=== PATIENT | male | born 1950 | race Caucasian/White ===

== ENCOUNTER 2019-07-23 18:08 | Inpatient (IN) | payer MEDICARE ==
[2019-07-23] VITALS (92 sets, daily range): BP systolic 126; BP diastolic 92; PULSE 99; TEMP 97.7; O2SAT 94–100
[~2019-07-23] VITALS: Ht 172.7 cm; Wt 80.3 kg
[2019-07-23 18:31] LABS: COLLECTION METHOD CLEAN CATCH
[2019-07-23 18:37] LABS: PH 6 (5-8); SQUAMOUS EPITHELIAL 0-2 /hpf; URINE APPEARANCE Clear; URINE BACTERIA None Seen /hpf; URINE BILIRUBIN Negative (NEGATIVE); URINE BLOOD 1+ (NEGATIVE); URINE COLOR Colorless; URINE GLUCOSE Negative (NEGATIVE); URINE KETONE Negative (NEGATIVE); URINE LEUKOCYTE ESTERASE Negative (NEGATIVE); URINE NITRATE Negative (NEGATIVE); URINE PROTEIN(semi-quant) Negative (NEGATIVE); URINE RBC 0-2 /hpf; URINE UROBILINOGEN Negative (NEGATIVE)
[2019-07-23 18:41] LABS: BASO % 0.6 % (0.0-2.0); EOS # 0.1 (0.0-0.7); EOS % 0.9 % (0-4.0); GRAN # 3.8 (1.4-6.5); GRAN % 58.5 % (42.2-75.2); HEMATOCRIT 44.4 % (42.0-52.0); HEMOGLOBIN 15.2 g/dl (13.5-18.0); LYMPH # 2.1 (1.2-3.4); LYMPH % 31.3 % (20.0-51.0); MEAN CELL VOLUME 87 fl (80.0-100.0); MEAN CORPUSCULAR HEMOGLOBIN 30 pg (27.0-31.0); MEAN CORPUSCULAR HGB CONC 34 g/dl (33.0-37.0); MEAN PLATELET VOLUME 9.2 fl (7.4-10.4); MONO # 0.6 (0.1-0.6); MONO % 8.5 % (1.7-9.3); PLATELET COUNT 220 K/mm3 (130-400); REDCELL DISTRIBUTION WIDTH-CV 13.2 % (11.5-14.5)
[2019-07-23 18:50] LABS: INR 1.1 (0.8-3.0); PROTHROMBIN TIME 11.8 SECONDS (9.7-12.8)
[2019-07-23 18:53] LABS: ALANINE AMINOTRANSFERASE 22 U/L (4-49); ALBUMIN 4.5 gm/dL (3.5-5.0); ALKALINE PHOSPHATASE 115 U/L (50-136); ANION GAP 7 mmol/L (7-16); AST,SGOT 27 U/L (15-37); BILIRUBIN,TOTAL 0.4 mg/dL (0.0-1.0); BLOOD UREA NITROGEN 18 mg/dL (9-20); CALCIUM 9.1 mg/dL (8.4-10.2); CARBON DIOXIDE 26 mmol/L (22-30); CHLORIDE 106 mmol/L (98-107); CREATINE KINASE 82 U/L (55-170); CREATININE, serum 0.88 (0.66-1.25); GLUCOSE 108 mg/dL (74-106); POTASSIUM 4.3 mmol/L (3.4-5.0); SODIUM 140 mmol/L (137-145); TOTAL PROTEIN 8.2 gm/dL (6.4-8.2)
[2019-07-23 19:06] LABS: TROPONIN-I < 0.012 ng/mL (0.000-0.035)
--- NOTE | 2019-07-23 20:13 | NUR ---
Received report from LESLIE Rogers.
--- NOTE | 2019-07-23 20:46 | NUR ---
Patient arrives to [facility] room 18 via ED stretcher. Cardizem is infusing to the RAC at 15 mg/hr. Patient is able to ambulate to [facility] bed with standby assistance. He denies any pain or discomfort; initial HR is 99, increasing to the 130s with ambulation. Other vitals within normal limits. He has with him his wallet, including $10 abreu; a wedding band, and his street clothes. No skin issues noted. Dr. Lobato notified of patient's arrival. Received orders for a general diet and to continue cardizem drip throughout the night, titrating as needed. Patient's family has been updated. Will continue to monitor.
[2019-07-23 21:46] LABS: MAGNESIUM 1.9 mg/dL (1.6-2.3)
[2019-07-23 22:08] LABS: TROPONIN-I 3 HR POST INITIAL < 0.012 ng/mL (0.000-0.034)
[2019-07-24] VITALS (503 sets, daily range): BP systolic 101–122; BP diastolic 63–81; PULSE 50–75; TEMP 97.6–98; O2SAT 91–100
[2019-07-24 05:08] LABS: BASO # 0.1 (0.0-0.2); BASO % 0.8 % (0.0-2.0); EOS # 0.1 (0.0-0.7); EOS % 1.5 % (0-4.0); GRAN # 2.9 (1.4-6.5); GRAN % 48.1 % (42.2-75.2); HEMATOCRIT 41.3 % (42.0-52.0); HEMOGLOBIN 13.9 g/dl (13.5-18.0); LYMPH # 2.3 (1.2-3.4); LYMPH % 37.8 % (20.0-51.0); MEAN CELL VOLUME 87 fl (80.0-100.0); MEAN CORPUSCULAR HEMOGLOBIN 29 pg (27.0-31.0); MEAN CORPUSCULAR HGB CONC 34 g/dl (33.0-37.0); MEAN PLATELET VOLUME 9.3 fl (7.4-10.4); MONO # 0.7 (0.1-0.6); MONO % 11.6 % (1.7-9.3); PLATELET COUNT 211 K/mm3 (130-400); RED BLOOD COUNT 4.77 M/mm3 (4.20-5.60); REDCELL DISTRIBUTION WIDTH-CV 13.2 % (11.5-14.5)
[2019-07-24 05:17] LABS: CALCIUM 8.6 mg/dL (8.4-10.2); CREATININE, serum 0.84 (0.66-1.25); PHOSPHOROUS 3.9 mg/dL (2.5-4.5); POTASSIUM 3.6 mmol/L (3.4-5.0)
--- NOTE | 2019-07-24 10:58 | NUR ---
Bedside shift report received from LESLIE Pryor. Patient awake, resting, with no complaints or concerns. Vital sign stable. Full assessment completed. Bed in lowest position, side rails up x2, call light and personal items within reach.
--- NOTE | 2019-07-24 11:04 | NUR ---
SW met with the patient to discuss discharge plan. The patient lives in [place] with his , Erinn (ph#[phone]). He reports independence with ADLs and does not have any DME. The patient does not have a PCP. He states that he would be interested in getting set up with a PCP in [place]. FIOR provided the patient with a list of the different providers in [place]. The patient states that he has some friends that are nurses and would like to talk to them first and get their preferences on a PCP. He receives his medications at [facility]. He reports that he has not had difficulties affording his meds yet, but is unsure if he will have problems affording any new meds he is prescribed. He states that he does not have prescription coverage. The patient plans to return home with his upon discharge. The patient is to have a heart cath tomorrow. SW to continue to follow for PCP preference and pricing meds.
--- NOTE | 2019-07-24 11:50 | NUR ---
Cardizem gtt d/c'd per physician orders since PO cardizem given approximately 1 hour ago.
--- NOTE | 2019-07-24 12:04 | NUR ---
Patient presses call light and states that his heart feels like it is in a normal rhythm. Telemetry assessed and obvious p-waves noted with a regular rhythm. EKG ordered and patient is indeed in sinus rhythm. Hospitalist and cardiology made aware at this time.
--- NOTE | 2019-07-24 16:18 | NUR ---
Approximately 1500 patient has an episode of symptomatic bradycardia. Patient states he felt "queasy and weak" and felt "sweaty" and looked at the monitor and noticed that his heart rate was in the 40's. Soon after, he felt much better and his heart rate came back up into the 50's. Dr. Cerna notified of event and patient educated per Dr. Cerna notification that we are monitoring his vitals and this result is somewhat expected from the intiation of sotalol. Dr. Cerna states that it is fine to give the sotalol for a heart rate over 40bpm. Patient verbalizes understanding and has no further complaints or concerns at this time.
--- NOTE | 2019-07-24 19:47 | NUR ---
Report given to Dayana, medical floor RN at this time. Room 316 has not been cleaned yet and they are unable to take the patient, so a report was also given to Kasandra, CREDIT REPORTER and care handed over at this time.
--- NOTE | 2019-07-24 20:30 | NUR ---
To room 316 via wheelchair from ICU. Oriented to room and policy. Assessment complete. VS stable. A&Ox3. Denies shortness of breath/pain/nausea. Plan of care discussed for this shift to include HS meds. Denies questions/concerns. Call light in reach. WIll monitor.
[2019-07-25 00:29] VITALS: BP 104/54; PULSE 58; TEMP 98.2
[2019-07-25 04:42] VITALS: BP 107/55; PULSE 57; TEMP 98.3
[2019-07-25 07:40] VITALS: BP 99/54; PULSE 63; TEMP 98.3
[2019-07-25 08:01] LABS: BASO % 0.8 % (0.0-2.0); EOS # 0.1 (0.0-0.7); GRAN # 2.5 (1.4-6.5); GRAN % 49.2 % (42.2-75.2); HEMATOCRIT 42.7 % (42.0-52.0); HEMOGLOBIN 14.4 g/dl (13.5-18.0); LYMPH # 1.9 (1.2-3.4); LYMPH % 37.4 % (20.0-51.0); MEAN CELL VOLUME 88 fl (80.0-100.0); MEAN CORPUSCULAR HEMOGLOBIN 30 pg (27.0-31.0); MEAN CORPUSCULAR HGB CONC 34 g/dl (33.0-37.0); MEAN PLATELET VOLUME 9.7 fl (7.4-10.4); MONO # 0.5 (0.1-0.6); MONO % 10.4 % (1.7-9.3); PLATELET COUNT 206 K/mm3 (130-400); RED BLOOD COUNT 4.88 M/mm3 (4.20-5.60); REDCELL DISTRIBUTION WIDTH-CV 13.2 % (11.5-14.5)
[2019-07-25 08:20] LABS: INR 1.3 (0.8-3.0)
--- NOTE | 2019-07-25 08:20 | NUR ---
PT AOX4. DENIES PAIN, CP, VERTIGO, N/V. AWAITING LOOP RECORDER INSERTION. NPO SINCE MIDNIGHT, MORNING MEDS WITH SMALL SIP OF WATER
[2019-07-25 08:35] LABS: CALCIUM 8.7 mg/dL (8.4-10.2); CREATININE, serum 0.85 (0.66-1.25); POTASSIUM 3.8 mmol/L (3.4-5.0)
[2019-07-25 11:08] VITALS: BP 118/55; PULSE 58; TEMP 98.4
--- NOTE | 2019-07-25 12:27 | NUR ---
First visit from the straw hat brim raiser operator. No needs right now.
[2019-07-25 15:31] VITALS: BP 108/58; PULSE 68; TEMP 98.3
--- NOTE | 2019-07-25 19:00 | NUR ---
Report rcvd from LESLIE Tierney. Pt was laying in bed at time of bedside report. Pt has no c/o pain or discomfort at this time. Assessment completed. Call light within reach. No further concerns.
[2019-07-25 20:48] VITALS: BP 127/65; PULSE 81; TEMP 97.9
[2019-07-26 00:11] VITALS: BP 111/59; PULSE 72; TEMP 98.3
[2019-07-26 04:09] VITALS: BP 116/61; PULSE 66; TEMP 98.2
[2019-07-26 07:11] LABS: BASO # 0.1 (0.0-0.2); BASO % 0.8 % (0.0-2.0); EOS # 0.1 (0.0-0.7); EOS % 1.6 % (0-4.0); GRAN # 3.2 (1.4-6.5); GRAN % 51.6 % (42.2-75.2); HEMATOCRIT 43.5 % (42.0-52.0); HEMOGLOBIN 14.5 g/dl (13.5-18.0); LYMPH # 2.3 (1.2-3.4); LYMPH % 36.7 % (20.0-51.0); MEAN CELL VOLUME 87 fl (80.0-100.0); MEAN CORPUSCULAR HEMOGLOBIN 29 pg (27.0-31.0); MEAN CORPUSCULAR HGB CONC 33 g/dl (33.0-37.0); MEAN PLATELET VOLUME 9.5 fl (7.4-10.4); MONO # 0.6 (0.1-0.6); MONO % 9.1 % (1.7-9.3); PLATELET COUNT 199 K/mm3 (130-400); RED BLOOD COUNT 4.98 M/mm3 (4.20-5.60)
[2019-07-26 07:35] LABS: CALCIUM 8.6 mg/dL (8.4-10.2); CREATININE, serum 0.89 (0.66-1.25); MAGNESIUM 1.9 mg/dL (1.6-2.3); POTASSIUM 3.9 mmol/L (3.4-5.0)
[2019-07-26 07:37] LABS: PROTHROMBIN TIME 11.5 SECONDS (9.7-12.8)
[2019-07-26 08:26] VITALS: BP 123/71; PULSE 71; TEMP 97.7
[2019-07-26] MEDS ORDERED: BETAPACE 80MG80 MG PO (09:34)
--- NOTE | 2019-07-26 09:46 | NUR ---
Patient to discharge home today. SW followed up with patient about primary care. Patient states he does not want to set up primary care until he is able to speak with his medical contacts about primary care references. Patient does plan to follow up with Cardiology upon discharge and this appointment has been scheduled. FIOR provided update to ELKE Sifuentes. No additional needs at this time.
[2019-07-26] MEDS ORDERED: COUMADIN 5MG5 MG/TAB PO (11:22)
--- NOTE | 2019-07-26 12:29 | NUR ---
pt picked up by @1215. ambulated out. denies concerns. all belongings accounted for
== END 2019-07-26 12:15 | disposition home or self-care (01) | DRG 310 ==
LOC: COL.ER 18:08 → IMCU 19:08 → MEDICAL 07-24 21:55
PROVIDERS: Emergency Medicine; ADMIT Student in an Organized Health Care Education/Training Program
DX: I48.91 Unspecified atrial fibrillation (principal); Z90.49 Acquired absence of other specified parts of digestive tract
CPT/HCPCS: 99222-AI; 99232-AI; 99239; J2060

== ENCOUNTER 2020-06-17 17:54 | Observation (INO) | payer MEDICARE ==
[~2020-06-17] VITALS: Ht 172.7 cm; Wt 85.7 kg
[~2020-06-17 17:54] MED LIST: BETAPACE 80MG80 MG PO; COUMADIN 5MG5 MG/TAB PO
[2020-06-17 18:53] LABS: BASO # 0.1 (0.0-0.2); BASO % 0.9 % (0.0-2.0); EOS # 0.1 (0.0-0.7); EOS % 1.2 % (0-4.0); GRAN # 4.4 (1.4-6.5); GRAN % 63.6 % (42.2-75.2); HEMATOCRIT 45.3 % (42.0-52.0); HEMOGLOBIN 15.2 g/dl (13.5-18.0); LYMPH # 1.7 (1.2-3.4); LYMPH % 25.4 % (20.0-51.0); MEAN CELL VOLUME 90 fl (80.0-100.0); MEAN CORPUSCULAR HEMOGLOBIN 30 pg (27.0-31.0); MEAN CORPUSCULAR HGB CONC 34 g/dl (33.0-37.0); MEAN PLATELET VOLUME 9.5 fl (7.4-10.4); MONO # 0.6 (0.1-0.6); MONO % 8.3 % (1.7-9.3); PLATELET COUNT 281 K/mm3 (130-400); RED BLOOD COUNT 5.04 M/mm3 (4.20-5.60); REDCELL DISTRIBUTION WIDTH-CV 12.6 % (11.5-14.5)
[2020-06-17 19:00] LABS: PROTHROMBIN TIME 10.7 SECONDS (9.7-12.8)
[2020-06-17 19:03] LABS: PARTIAL THROMBOPLASTIN TIME 32.1 SECONDS (26.0-37.0)
[2020-06-17 19:04] LABS: ALANINE AMINOTRANSFERASE 30 U/L (4-49); ALBUMIN 4.6 gm/dL (3.5-5.0); ALKALINE PHOSPHATASE 116 U/L (50-136); ANION GAP 11 mmol/L (7-16); AST,SGOT 33 U/L (15-37); BILIRUBIN,TOTAL 0.2 mg/dL (0.0-1.0); BLOOD UREA NITROGEN 16 mg/dL (9-20); CARBON DIOXIDE 26 mmol/L (22-30); CHLORIDE 106 mmol/L (98-107); CREATININE, serum 0.77 (0.66-1.25); GLUCOSE 114 mg/dL (74-106); SODIUM 143 mmol/L (137-145); TOTAL PROTEIN 9.2 gm/dL (6.4-8.2)
[2020-06-17 19:16] LABS: TROPONIN-I < 0.012 ng/mL (0.000-0.035)
--- NOTE | 2020-06-17 22:40 | NUR ---
Patient arrived from ED to ICU 5 at this time. Assessment complete and charted. Orientated to ICU. Denies needs. All questions answered.
[2020-06-17 23:00] VITALS: BP 119/83; PULSE 100; TEMP 98.9
[2020-06-18] VITALS (120 sets, daily range): BP systolic 111–148; BP diastolic 64–80; PULSE 64–110; TEMP 97.6–98.6; O2SAT 89–96
--- NOTE | 2020-06-18 03:30 | NUR ---
Given PRN tramadol for right shoulder pain. Denies other needs. Call carlene kay.
[2020-06-18 06:25] LABS: BASO # 0.1 (0.0-0.2); BASO % 0.9 % (0.0-2.0); EOS # 0.1 (0.0-0.7); EOS % 1.3 % (0-4.0); GRAN # 3.5 (1.4-6.5); GRAN % 52.3 % (42.2-75.2); HEMATOCRIT 40.6 % (42.0-52.0); HEMOGLOBIN 13.8 g/dl (13.5-18.0); LYMPH # 2.4 (1.2-3.4); LYMPH % 34.9 % (20.0-51.0); MEAN CELL VOLUME 88 fl (80.0-100.0); MEAN CORPUSCULAR HEMOGLOBIN 30 pg (27.0-31.0); MEAN CORPUSCULAR HGB CONC 34 g/dl (33.0-37.0); MEAN PLATELET VOLUME 9.3 fl (7.4-10.4); MONO # 0.7 (0.1-0.6); MONO % 10.2 % (1.7-9.3); PLATELET COUNT 238 K/mm3 (130-400); RED BLOOD COUNT 4.62 M/mm3 (4.20-5.60); REDCELL DISTRIBUTION WIDTH-CV 12.6 % (11.5-14.5)
[2020-06-18 06:37] LABS: ANION GAP 8 mmol/L (7-16); BLOOD UREA NITROGEN 16 mg/dL (9-20); CALCIUM 8.6 mg/dL (8.4-10.2); CARBON DIOXIDE 26 mmol/L (22-30); CHLORIDE 106 mmol/L (98-107); CREATININE, serum 0.82 (0.66-1.25); GLUCOSE 122 mg/dL (74-106); POTASSIUM 3.8 mmol/L (3.4-5.0); SODIUM 140 mmol/L (137-145)
[2020-06-18 06:50] LABS: TROPONIN-I < 0.012 ng/mL (0.000-0.035)
--- NOTE | 2020-06-18 07:35 | NUR ---
Report given to LESLIE Mascorro and patient taken to medical floor room 352.
--- NOTE | 2020-06-18 07:38 | NUR ---
Patient transferred from the ICU. Patient earline on tele, in Afib. LR running at 125 ml/hr in the right AC. Dressing on site is clean, dry, and intact. Patient is Alert an oriented. No skin issues noted. Pedal and radial pulses are a +2 bilaterally. Patient C/O of mild pain in his shoulder, denied pain medication, requested an ice pack instead. Patient denies any further pain, discomfort, or needs at this time. Will continue to monitor. Call light within reach.
--- NOTE | 2020-06-18 09:53 | NUR ---
Patient sent down to open hearth laborer for cardioversion an possible loop recorder placement.
[2020-06-18] MEDS ORDERED: COUMADIN 5MG5 MG/TAB PO (11:21)
[2020-06-18] MEDS ORDERED: BETAPACE 120MG120 MG PO (11:22)
[2020-06-18] MEDS ORDERED: ULTRAM 50MG TAB50 MG PO (11:23)
[2020-06-18] MEDS ORDERED: CEPHALEXIN500 M1 PO (11:29)
--- NOTE | 2020-06-18 13:58 | NUR ---
Patient transferred up from the ICU. Patient admitted last night for Afib. Upon assessment normal S1 and S2 present, pedal and radial pulses present +2 bilaterally, lungs clear to auscultation, patient A&O, no skin issues noted, and bowel sounds were present in all four quadrants. Patient denied any pain or discomfort at that time. Patient independent in room. Patient taken down to cath laboratory technician for a cardioversion and placement of a loop recorder. Patient tolerated procedure well. Patient deemed fit for discharge. Patient education given. Patient denied any further questions or concerns. IV DC'd, catheter intact, no signs on phlebitis. Patient denied any pain. Patient escorted out of building by [facility] Staff.
== END 2020-06-18 13:30 | disposition home or self-care (01) ==
LOC: COL.ER 17:54 → ICU 18:36 → MEDICAL 06-18 07:32
PROVIDERS: Family Medicine; Nurse Practitioner Family; ADMIT Hospitalist
DX: I48.91 Unspecified atrial fibrillation (principal); Z90.49 Acquired absence of other specified parts of digestive tract; Z79.01 Long term (current) use of anticoagulants; I08.3 Combined rheumatic disorders of mitral, aortic and tricuspid valves
CPT/HCPCS: C1764; G0378; J1650; J2704; J7120

== ENCOUNTER → 2020-06-26 | Outpatient (CLI) | payer MEDICARE ==
[~2020-06-26] MED LIST changes: +BETAPACE 120MG120 MG PO; +CEPHALEXIN500 M1 PO; +ULTRAM 50MG TAB50 MG PO
== END ==
LOC: COL.RAD 14:29
DX: S49.91XA Unspecified injury of right shoulder and upper arm, initial encounter (principal)

== ENCOUNTER 2020-06-28 14:55 | Emergency (ER) | payer MEDICARE ==
[~2020-06-28] VITALS: Ht 172.7 cm; Wt 85.9 kg
[2020-06-28 15:14] VITALS: TEMP 98.1
[2020-06-28 15:40] LABS: BASO # 0.1 (0.0-0.2); BASO % 1.1 % (0.0-2.0); EOS # 0.1 (0.0-0.7); EOS % 1.4 % (0-4.0); GRAN # 3.2 (1.4-6.5); GRAN % 49.2 % (42.2-75.2); HEMATOCRIT 43.4 % (42.0-52.0); HEMOGLOBIN 14.6 g/dl (13.5-18.0); LYMPH # 2.3 (1.2-3.4); LYMPH % 36.1 % (20.0-51.0); MEAN CELL VOLUME 90 fl (80.0-100.0); MEAN CORPUSCULAR HEMOGLOBIN 30 pg (27.0-31.0); MEAN CORPUSCULAR HGB CONC 34 g/dl (33.0-37.0); MEAN PLATELET VOLUME 9.3 fl (7.4-10.4); MONO # 0.8 (0.1-0.6); PLATELET COUNT 261 K/mm3 (130-400); RED BLOOD COUNT 4.82 M/mm3 (4.20-5.60); REDCELL DISTRIBUTION WIDTH-CV 12.1 % (11.5-14.5)
[2020-06-28 16:07] LABS: ALANINE AMINOTRANSFERASE 22 U/L (4-49); ALBUMIN 4.3 gm/dL (3.5-5.0); ALKALINE PHOSPHATASE 98 U/L (50-136); ANION GAP 8 mmol/L (7-16); AST,SGOT 29 U/L (15-37); BILIRUBIN,TOTAL 0.2 mg/dL (0.0-1.0); BLOOD UREA NITROGEN 13 mg/dL (9-20); CALCIUM 8.8 mg/dL (8.4-10.2); CARBON DIOXIDE 26 mmol/L (22-30); CHLORIDE 102 mmol/L (98-107); CREATININE, serum 0.91 (0.66-1.25); GLUCOSE 97 mg/dL (74-106); POTASSIUM 4.4 mmol/L (3.4-5.0); SODIUM 137 mmol/L (137-145); TOTAL PROTEIN 8.5 gm/dL (6.4-8.2)
[2020-06-28 16:21] LABS: TROPONIN-I < 0.012 ng/mL (0.000-0.035)
[2020-06-28 17:00] VITALS: BP 135/85; PULSE 78
== END 2020-06-28 17:00 | disposition home or self-care (01) ==
LOC: COL.ER 14:55
PROVIDERS: Emergency Medicine
DX: R53.83 Other fatigue (principal); I48.91 Unspecified atrial fibrillation; Z79.01 Long term (current) use of anticoagulants
CPT/HCPCS: J7030

== ENCOUNTER → 2020-08-20 | Outpatient (CLI) | payer MEDICARE | LOC: COL.RAD 09:17 | DX: Z01.812 Encounter for preprocedural laboratory examination (principal); M75.100 Unspecified rotator cuff tear or rupture of unspecified shoulder, not specified as traumatic ==

== ENCOUNTER → 2022-06-01 | Outpatient (REF) | payer MEDICARE | LOC: ZCOL.LAB 16:34 | DX: L02.211 Cutaneous abscess of abdominal wall (principal) ==